=== PATIENT | male | born 1955 | race Caucasian/White ===

== ENCOUNTER 2017-01-09 22:53 | Emergency (ER) | payer MEDICARE ==
[~2017-01-09 22:53] MED LIST: ASPIR-LOW81 MG PO; ASPIRIN325 MG PO; AZELASTINE137 MCG/0.; COZAAR50 MG PO; FLEXERIL 10 MG10 MG PO; FLOMAX0.4 MG PO; FLONASE 0.05% N16 GM; FLOVENT DISKUS50 MCG; LASIX20 MG PO; LEVEMIR FL100 UNIT/1 SQ; LIPITOR80 MG PO; LISINOPRIL40 MG PO; LOPRESSOR100 MG PO; METOPROLOL SUC200 MG PO; NORCO 10-325 T1 EACH PO; NOVOLOG 10100 UNITS2 SQ; PLAVIX 75 MG TA75 MG PO; PLETAL 100 MG100 MG PO; PRAVASTATIN SOD20 MG PO; ZANTAC150 MG PO; ZYRTEC10 M3 PO
== END 2017-01-10 02:50 | disposition home or self-care (01) ==
LOC: ER1 22:53
DX: R06.00 Dyspnea, unspecified (principal); R68.89 Other general symptoms and signs; Z86.79 Personal history of other diseases of the circulatory system; Z87.891 Personal history of nicotine dependence; Z98.890 Other specified postprocedural states
CPT/HCPCS: 99283

== ENCOUNTER 2017-04-27 09:17 | Observation (INO) | payer MEDICARE ==
[~2017-04-27] VITALS: Ht 180.3 cm; Wt 100.7 kg
[2017-04-27 10:04] LABS: HEMOGLOBIN 13.7 gm/dl (14.0-17.5); RED BLOOD COUNT 4.75 M/UL (4.20-5.50); WHITE BLOOD COUNT 5.2 K/UL (4.5-11.0)
[2017-04-27 10:37] LABS: BUN/CREATININE RATIO 18 (0-10)
[2017-04-27] MEDS ORDERED: NITROSTAT 0.40.4 MG SL (16:28)
[2017-04-28 05:49] LABS: HEMOGLOBIN 13.6 gm/dl (14.0-17.5); RED BLOOD COUNT 4.72 M/UL (4.20-5.50); WHITE BLOOD COUNT 4.8 K/UL (4.5-11.0)
[2017-04-28 06:07] LABS: BUN/CREATININE RATIO 25 (0-10)
[2017-04-28] MEDS ORDERED: IMDUR ER TAB 6060 MG PO (17:00)
== END 2017-04-28 18:00 | disposition home or self-care (01) ==
LOC: ER1 09:17 → ZEROF 13:36 → M/S 13:36 → ZEROF 13:36 → M/S 15:56
PROVIDERS: Emergency Medicine; ADMIT Internal Medicine
DX: R07.89 Other chest pain (principal); M25.512 Pain in left shoulder; I16.0 Hypertensive urgency; I25.10 Atherosclerotic heart disease of native coronary artery without angina pectoris; E11.65 Type 2 diabetes mellitus with hyperglycemia; G89.29 Other chronic pain; M54.9 Dorsalgia, unspecified; N40.0 Benign prostatic hyperplasia without lower urinary tract symptoms; E78.5 Hyperlipidemia, unspecified; E66.9 Obesity, unspecified; Z95.1 Presence of aortocoronary bypass graft; Z87.891 Personal history of nicotine dependence; Z79.02 Long term (current) use of antithrombotics/antiplatelets; Z79.899 Other long term (current) drug therapy
CPT/HCPCS: 36415; 70450; 71020; 73030; 80053; 82550; 82553; 82962; 83874; 83880; 84484; 85025; 93005; 99285; G0378